=== PATIENT | female | born 1980 | race Caucasian/White ===

== ENCOUNTER → 2020-01-27 10:43 | Outpatient (BNVA) | payer SELFPAY | PROVIDERS: Family Provider Nurse Practitioner Family; PCP Nurse Practitioner; Visit Provider Nurse Practitioner | DX: E06.3 Autoimmune thyroiditis (principal); M25.50 Pain in unspecified joint | CPT/HCPCS: 84443; 85651 ==

== ENCOUNTER → 2020-03-01 14:34 | Outpatient (BNVA) | payer OTHER, SELFPAY | PROVIDERS: Family Provider Nurse Practitioner Family; PCP Nurse Practitioner; Visit Provider Nurse Practitioner Family | DX: Z20.828 Contact with and (suspected) exposure to other viral communicable diseases (principal) | CPT/HCPCS: 87635 ==

== ENCOUNTER → 2020-05-13 08:30 | Outpatient (BNVA) | payer SELFPAY | PROVIDERS: Family Provider Nurse Practitioner Family; PCP Nurse Practitioner; Visit Provider Nurse Practitioner | DX: E06.3 Autoimmune thyroiditis (principal); L29.9 Pruritus, unspecified | CPT/HCPCS: 84443 ==

== ENCOUNTER → 2020-08-26 08:04 | Outpatient (BNVA) | payer SELFPAY | PROVIDERS: Family Provider Nurse Practitioner Family; PCP Nurse Practitioner; Visit Provider Nurse Practitioner | DX: E06.3 Autoimmune thyroiditis (principal); M79.10 Myalgia, unspecified site | CPT/HCPCS: 80053; 84443 ==

== ENCOUNTER → 2021-03-01 10:53 | Outpatient (BNVA) | payer MEDICAID, SELFPAY | PROVIDERS: Family Provider Nurse Practitioner Family; PCP Nurse Practitioner; Visit Provider Nurse Practitioner | DX: E06.3 Autoimmune thyroiditis (principal) | CPT/HCPCS: 80053; 84443 ==

== ENCOUNTER → 2021-08-23 10:07 | Outpatient (BNVA) | payer MEDICAID, SELFPAY | PROVIDERS: Family Provider Nurse Practitioner Family; PCP Nurse Practitioner; Visit Provider Nurse Practitioner | DX: E06.3 Autoimmune thyroiditis (principal); Z13.6 Encounter for screening for cardiovascular disorders; M79.10 Myalgia, unspecified site | CPT/HCPCS: 80053; 80061; 84439; 84443; 84481; 85651; 86140 ==

== ENCOUNTER → 2021-10-16 09:16 | Outpatient (BNVA) | payer MEDICAID, SELFPAY | PROVIDERS: Family Provider Nurse Practitioner Family; PCP Nurse Practitioner; Visit Provider Internal Medicine | DX: R70.0 Elevated erythrocyte sedimentation rate (principal); Z11.59 Encounter for screening for other viral diseases; E06.3 Autoimmune thyroiditis; M79.10 Myalgia, unspecified site; R13.10 Dysphagia, unspecified; M54.2 Cervicalgia | CPT/HCPCS: 36415; 72202; 73120; 80053; 81003; 82550; 83516; 83735; 84100; 85025; 85651; 86140; 86160; 86162; 86235; 86255; 86376; 86704; 86803; 87340; 99204 ==

== ENCOUNTER 2021-10-24 07:28 | Outpatient (CLI) | payer MEDICAID, SELFPAY ==
--- NOTE | 2021-10-24 07:43 | FL_ITS ---
WS: [id number] Exam: FL barium swallow [id number] Date/Time of Exam: 10/24/2021 7:49 AM Reason For Exam: OTHER DYSPHAGIA Fluoroscopy time: 1min [id number] minutes # of spot films: 13 Swallowing function at the level of the oropharynx was normal. No aspiration or penetration noted. Th e esophagus is smooth in contour. No sign of esophageal stricture or mass. Esophageal motility was no rmal. No hiatal hernia or gastroesophageal reflux. The esophagus is not displaced. FL/FL barium swallow [id number] IMPRESSION: 1. Unremarkable esophagram.
== END 2021-10-24 07:29 | disposition home or self-care (01) ==
LOC: RAD 07:30
PROVIDERS: PCP Nurse Practitioner; Visit Provider Specialist
DX: R13.19 Other dysphagia (principal)
CPT/HCPCS: 74220

== ENCOUNTER 2021-10-24 07:29 | Outpatient (CLI) | payer MEDICAID, SELFPAY ==
--- NOTE | 2021-10-24 09:30 | US_ITS ---
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 This does not have suspicious appearance. Remaining aspects the right lobe are unremarkable. The right lobe measures 4 x 1.35 x 1.52 cm. Evaluation of the left thyroid lobe shows no evidence of solid or cystic lesion. The left lobe measur es 1.1 x 1.45 x 3.34 cm. The thyroid isthmus is unremarkable and measures 3 mm at greatest thickness. Mild bilateral cervical lymphadenopathy noted however none of the nodes exceed 1 cm greatest short a xis dimension. US/US thyroid [id number] IMPRESSION: 1. Small ovoid slightly hypoechoic nodule in the lower pole the right thyroid l obe that measures 0.8 5.41 to 0.84 cm. This does not have suspicious appearance . Recheck ultrasound in 6-8 months for surveillance would be recommended. 2. Normal-appearing left thyroid lobe and isthmus. 3. Mild bilateral cervical lymphadenopathy probably reactive. None of the nodes exceed 1 cm greatest short axis dimension. Some are fatty replaced.
== END 2021-10-24 07:30 | disposition home or self-care (01) ==
LOC: RAD 07:30
PROVIDERS: PCP Nurse Practitioner; Visit Provider Nurse Practitioner
DX: E06.3 Autoimmune thyroiditis (principal); R13.10 Dysphagia, unspecified; E04.1 Nontoxic single thyroid nodule
CPT/HCPCS: 76536

== ENCOUNTER → 2021-12-15 08:22 | Outpatient (BNVA) | payer MEDICAID, SELFPAY | PROVIDERS: PCP Nurse Practitioner; Visit Provider Nurse Practitioner | DX: M45.0 Ankylosing spondylitis of multiple sites in spine (principal); E06.3 Autoimmune thyroiditis; M79.10 Myalgia, unspecified site; R70.0 Elevated erythrocyte sedimentation rate; M46.1 Sacroiliitis, not elsewhere classified; E83.39 Other disorders of phosphorus metabolism | CPT/HCPCS: 86812 ==

== ENCOUNTER → 2022-02-07 09:27 | Outpatient (BNVA) | payer MEDICAID, SELFPAY | PROVIDERS: PCP Nurse Practitioner; Visit Provider Nurse Practitioner | DX: E06.3 Autoimmune thyroiditis (principal) | CPT/HCPCS: 84443 ==

== ENCOUNTER → 2022-04-23 08:53 | Outpatient (BNVA) | payer MEDICAID, SELFPAY | PROVIDERS: PCP Nurse Practitioner; Visit Provider Internal Medicine | DX: E06.3 Autoimmune thyroiditis (principal); M46.1 Sacroiliitis, not elsewhere classified; R70.0 Elevated erythrocyte sedimentation rate | CPT/HCPCS: 80053; 84100; 85025; 85651; 86140 ==

== ENCOUNTER → 2022-08-17 08:17 | Outpatient (BNVA) | payer MEDICAID, SELFPAY | PROVIDERS: PCP Nurse Practitioner; Visit Provider Nurse Practitioner | DX: E06.3 Autoimmune thyroiditis (principal) | CPT/HCPCS: 84443 ==

== ENCOUNTER → 2022-11-07 08:14 | Outpatient (BNVA) | payer MEDICAID, SELFPAY | PROVIDERS: PCP Nurse Practitioner; Visit Provider Nurse Practitioner | DX: M46.1 Sacroiliitis, not elsewhere classified; R79.82 Elevated C-reactive protein (CRP) | CPT/HCPCS: 80053; 84443; 85025; 85651; 86140 ==

== ENCOUNTER → 2022-12-04 11:28 | Outpatient (BNVA) | payer MEDICAID, SELFPAY | PROVIDERS: PCP Nurse Practitioner; Visit Provider Internal Medicine | DX: M46.1 Sacroiliitis, not elsewhere classified (principal); R79.82 Elevated C-reactive protein (CRP) | CPT/HCPCS: 73620 ==

== ENCOUNTER → 2023-03-13 07:58 | Outpatient (BNVA) | payer MEDICAID, SELFPAY | PROVIDERS: PCP Nurse Practitioner; Visit Provider Internal Medicine | DX: R70.0 Elevated erythrocyte sedimentation rate (principal); Z79.899 Other long term (current) drug therapy; R79.82 Elevated C-reactive protein (CRP); E06.3 Autoimmune thyroiditis | CPT/HCPCS: 80053; 84439; 84443; 84481; 85025; 85651; 86140 ==

== ENCOUNTER 2023-05-03 09:43 | Outpatient (CLI) | payer MEDICAID, SELFPAY ==
--- NOTE | 2023-05-03 10:04 | MM_ITS ---
WS: [id number] SCREENING DIGITAL TOMOSYNTHESIS MAMMOGRAM WITH CAD HISTORY: Z12.31 - Encounter for screening mammogram for malignant ... COMPARISON: None available. Bilateral CC and MLO with tomosynthesis views submitted. Synthetic mammography reviewed. Computer aid ed detection analyzed. Breast composition: There are scattered areas of fibroglandular density. No suspicious masses, microc alcifications or architectural distortion. IMPRESSION: MM/[place] [id number] BI-RADS: 1-Negative FOLLOW UP: 1 Year Follow-up
== END 2023-05-03 09:44 | disposition home or self-care (01) ==
LOC: RAD 09:43
PROVIDERS: PCP Nurse Practitioner; Visit Provider Nurse Practitioner
DX: Z12.31 Encounter for screening mammogram for malignant neoplasm of breast (principal); R92.323 Mammographic fibroglandular density, bilateral breasts
CPT/HCPCS: 77063; 77067

== ENCOUNTER → 2023-05-30 15:24 | Outpatient (BNVA) | payer MEDICAID, SELFPAY | PROVIDERS: PCP Nurse Practitioner; Visit Provider Nurse Practitioner | DX: J02.9 Acute pharyngitis, unspecified (principal); J06.9 Acute upper respiratory infection, unspecified | CPT/HCPCS: 87071; 87880 ==

== ENCOUNTER → 2023-06-13 11:13 | Outpatient (BNVA) | payer MEDICAID, SELFPAY | PROVIDERS: PCP Nurse Practitioner; Visit Provider Nurse Practitioner | DX: Z12.4 Encounter for screening for malignant neoplasm of cervix (principal); R79.82 Elevated C-reactive protein (CRP); R70.0 Elevated erythrocyte sedimentation rate | CPT/HCPCS: 80053; 85025; 85651; 86140; 88175 ==

== ENCOUNTER → 2023-09-23 16:54 | Outpatient (BNVA) | payer MEDICAID, SELFPAY | PROVIDERS: PCP Nurse Practitioner; Visit Provider Nurse Practitioner | DX: R00.2 Palpitations (principal); E06.3 Autoimmune thyroiditis; M46.1 Sacroiliitis, not elsewhere classified; J30.89 Other allergic rhinitis; M79.10 Myalgia, unspecified site | CPT/HCPCS: 80053; 84443; 85025; 85651; 86140 ==

== ENCOUNTER → 2023-10-24 12:47 | Outpatient (BNVA) | payer MEDICAID, SELFPAY | PROVIDERS: PCP Nurse Practitioner; Visit Provider Podiatrist Foot & Ankle Surgery | DX: M79.671 Pain in right foot (principal); M21.6X1 Other acquired deformities of right foot; M72.2 Plantar fascial fibromatosis | CPT/HCPCS: 73630 ==

== ENCOUNTER → 2023-12-05 14:09 | Outpatient (BNVA) | payer MEDICAID, SELFPAY | PROVIDERS: PCP Nurse Practitioner; Visit Provider Nurse Practitioner | DX: M46.1 Sacroiliitis, not elsewhere classified (principal); R79.82 Elevated C-reactive protein (CRP) | CPT/HCPCS: 80053; 85025; 85651; 86140 ==

== ENCOUNTER → 2024-02-20 13:57 | Outpatient (BNVA) | payer MEDICAID, SELFPAY | PROVIDERS: PCP Nurse Practitioner; Visit Provider Nurse Practitioner | DX: M46.1 Sacroiliitis, not elsewhere classified (principal); E06.3 Autoimmune thyroiditis; R73.9 Hyperglycemia, unspecified | CPT/HCPCS: 80053; 83036; 84443; 85025; 85651; 86140 ==

== ENCOUNTER → 2024-05-07 13:24 | Outpatient (BNVA) | payer MEDICAID, SELFPAY | PROVIDERS: PCP Nurse Practitioner; Visit Provider Nurse Practitioner | DX: R79.82 Elevated C-reactive protein (CRP) (principal); E06.3 Autoimmune thyroiditis | CPT/HCPCS: 80053; 84443; 85025; 86140 ==

== ENCOUNTER 2024-05-15 08:54 | Outpatient (CLI) | payer MEDICAID, SELFPAY ==
--- NOTE | 2024-05-15 09:20 | MM_ITS ---
WS: [id number] BILATERAL SCREENING DIGITAL TOMOSYNTHESIS MAMMOGRAM WITH CAD HISTORY: Z12.31 - Encounter for screening mammogram for malignant ... COMPARISON: 05/03/2023 Bilateral CC and MLO views with tomosynthesis and synthetic mammography submitted. Computer aided detection analyzed. Breast composition: The breasts are heterogeneously dense, which may obscure small masses. No suspicious masses, microcalcifications or architectural distortion. MM/MM scr tomosynthesis [id number] IMPRESSION: BI-RADS: 2 - Benign FOLLOW UP: 1 Year Follow-up
== END 2024-05-15 08:55 | disposition home or self-care (01) ==
LOC: RAD 08:56
PROVIDERS: PCP Nurse Practitioner; Visit Provider Nurse Practitioner
DX: Z12.31 Encounter for screening mammogram for malignant neoplasm of breast (principal); R92.333 Mammographic heterogeneous density, bilateral breasts
CPT/HCPCS: 77063; 77067

== ENCOUNTER → 2024-07-23 13:25 | Outpatient (BNVA) | payer MEDICAID, SELFPAY | PROVIDERS: PCP Nurse Practitioner; Visit Provider Nurse Practitioner | DX: R70.0 Elevated erythrocyte sedimentation rate (principal); R79.82 Elevated C-reactive protein (CRP) | CPT/HCPCS: 80053; 85025; 85651; 86140 ==

== ENCOUNTER → 2024-10-15 14:36 | Outpatient (BNVA) | payer MEDICAID, SELFPAY | PROVIDERS: PCP Nurse Practitioner; Visit Provider Nurse Practitioner | DX: E06.3 Autoimmune thyroiditis (principal); E55.9 Vitamin D deficiency, unspecified | CPT/HCPCS: 80053; 80061; 82306; 84439; 84443; 84481; 85025; 85651; 86140 ==

== ENCOUNTER → 2025-01-07 08:35 | Outpatient (BNVA) | payer MEDICAID, SELFPAY | PROVIDERS: PCP Nurse Practitioner; Visit Provider Nurse Practitioner | DX: E06.3 Autoimmune thyroiditis (principal); R70.0 Elevated erythrocyte sedimentation rate; R79.82 Elevated C-reactive protein (CRP) | CPT/HCPCS: 80053; 84443; 85025; 85651; 86140 ==